=== PATIENT | male | born 1980 | race Caucasian/White ===

== ENCOUNTER 2017-11-22 10:03 | Emergency (ER) | payer BC ==
--- NOTE | 2017-11-22 10:48 | EDM.PDOCBH ---
ED HPI GENERAL MEDICAL PROBLEM - General Chief Complaint: Behavioral/Psych Stated Complaint: ANXIETY Time Seen by Provider: 11/22/17 10:22 Source of Information: Reports: Patient, Family, RN, RN Notes Reviewed History Limitations: Reports: No Limitations - History of Present Illness INITIAL COMMENTS - FREE TEXT/NARRATIVE: Patient presents to the ED at [facility] with symptoms of anxiety. He feels chest tightness, apprehension, nausea, and has been crying most of the morning. He is not sure why he is feeling like this. He does not recall any significant problems in the past. No thoughts of suicide or hurting other individuals. He felt he needs help because these symptoms have been lasting for so long. Symptoms started last night and have progressively gotten worse. Onset Date: 11/21/17 - Related Data Allergies Allergy/AdvReac Type Severity Reaction Status Date / Time No Known Allergies Allergy Verified 11/22/17 10:23 Home Meds: Home Meds Ondansetron HCl [Ondansetron] 4 mg PO TID #20 tablet 11/22/17 [Rx] hydrOXYzine pamoate [Hydroxyzine Pamoate] 50 mg PO TID #10 capsule 11/22/17 [Rx] ED ROS GENERAL - Review of Systems Review Of Systems: See Below Constitutional: Denies: Fever, Chills, Weakness Respiratory: Denies: Shortness of Breath, Cough Cardiovascular: Denies: Chest Pain, Palpitations GI/Abdominal: Reports: Nausea. Denies: Abdominal Pain, Vomiting Neurological: Reports: No Symptoms Psychiatric: Reports: Anxiety ED EXAM, BEHAVIORAL HEALTH - Physical Exam Exam: See Below Exam Limited By: No Limitations General Appearance: Alert, No Apparent Distress Respiratory/Chest: No Respiratory Distress, Lungs Clear, Normal Breath Sounds Cardiovascular: Normal Peripheral Pulses, Regular Rate, Rhythm GI/Abdominal: Normal Bowel Sounds, Soft, Non-Tender Neurological: Alert, Normal Cognition, Oriented x 3 Psychiatric: Alert, Normal Cognition, Oriented, Flat Affect Skin Exam: Warm, Dry, Intact, Normal color COURSE, BEHAVIORAL HEALTH COMP - Course Vital Signs: Last Vital Signs Temp 37.2 C 11/22/17 10:18 Pulse 94 11/22/17 10:18 Resp 18 11/22/17 10:18 BP 160/97 H 11/22/17 10:18 Pulse Ox 97 11/22/17 10:18 Departure - Departure Time of Disposition: 10:47 Disposition: Home, Self-Care 01 Condition: Good Clinical Impression: Anxiety - Discharge Information *PRESCRIPTION DRUG MONITORING PROGRAM REVIEWED*: Not Applicable *COPY OF PRESCRIPTION DRUG MONITORING REPORT IN PATIENT TALA: Not Applicable Prescriptions: hydrOXYzine pamoate [Hydroxyzine Pamoate] 50 mg PO TID #10 capsule Ondansetron HCl [Ondansetron] 4 mg PO TID #20 tablet Referrals: Marizol Cole DO [Physician] - Additional Instructions: 1. Stay well hydrated and rest 2. Take medication as needed only, it can make you drowsy 3. Establish care with a Primary so you can get additional resources 4. Call us with any questions or concerns - Problem List Review Problem List Initiated/Reviewed/Updated: Yes - Assessment/Plan Assessment:: Anxiety disorder Plan: Recommend counseling as first line therapy; will start Vistaril short term. Need to establish with PCP. No red flags for this patient.
== END 2017-11-22 11:00 | disposition home or self-care (01) ==
LOC: VM.ED 10:03
DX: F41.9 Anxiety disorder, unspecified (principal)
CPT/HCPCS: 93005; 99283